=== PATIENT | male | born 1975 | race Caucasian/White ===

== ENCOUNTER → 2017-05-22 | Outpatient (CLI) | payer MEDICARE, MEDICAID ==
[~2017-05-22] MED LIST: ALDACTONE25 MG PO; BENZ100C8 PO; DIPH25TA82 PO; FERR-57 PO; FERR325T5 PO; FLC1T PO; FLUT16SP22 NS; FURO40TA4 PO; GABA-488 PO; GABA300C PO; GLIP5TAB13 PO; GLIP5TAB26 PO; GLUC100016 PO; HYDR-1231 PO; LEVO500T69 PO; LEVO500T78 PO; LEVO750T24 PO; MILK1CAP2 PO; MILK200C4 PO; MORP30TA5 PO; MULT-633 PO; Metronidazole PO; NADO20TA PO; NADO40TA PO; OMEP20CA6 PO; OXC5T PO; OXYC-12 PO; OXYC-309 PO; OXYC5TAB71 PO; OXYCODONE 10MG PO; PRD20T PO; SENN1TAB76 PO; SPIR100T28 PO; SPIR100T37 PO; TIZA4CAP6 PO; TIZA4TAB55 PO; VIT500TA PO; VITA100T4 PO
== END ==
LOC: WOUNDCARE 14:04
PROVIDERS: ATTEND Surgery
DX: T24.212A Burn of second degree of left thigh, initial encounter (principal); L97.121 Non-pressure chronic ulcer of left thigh limited to breakdown of skin; E11.42 Type 2 diabetes mellitus with diabetic polyneuropathy
CPT/HCPCS: 16020

== ENCOUNTER → 2017-05-31 | Outpatient (CLI) | payer MEDICARE, MEDICAID | LOC: WOUNDCARE 09:56 | PROVIDERS: ATTEND Surgery | DX: L97.122 Non-pressure chronic ulcer of left thigh with fat layer exposed (principal); E11.42 Type 2 diabetes mellitus with diabetic polyneuropathy; T24.312A Burn of third degree of left thigh, initial encounter | CPT/HCPCS: 16020 ==

== ENCOUNTER → 2017-06-05 | Outpatient (CLI) | payer MEDICARE, MEDICAID | LOC: WOUNDCARE 10:13 | PROVIDERS: ATTEND Surgery | DX: T24.312A Burn of third degree of left thigh, initial encounter (principal); L97.122 Non-pressure chronic ulcer of left thigh with fat layer exposed; E11.42 Type 2 diabetes mellitus with diabetic polyneuropathy | CPT/HCPCS: 16020 ==

== ENCOUNTER → 2017-06-12 | Outpatient (CLI) | payer MEDICARE, MEDICAID | LOC: WOUNDCARE 10:50 | PROVIDERS: ATTEND Surgery | DX: L97.122 Non-pressure chronic ulcer of left thigh with fat layer exposed (principal); T24.312A Burn of third degree of left thigh, initial encounter; E11.42 Type 2 diabetes mellitus with diabetic polyneuropathy | CPT/HCPCS: 16020 ==

== ENCOUNTER → 2017-06-21 | Outpatient (CLI) | payer MEDICARE, MEDICAID | LOC: WOUNDCARE 11:19 | PROVIDERS: ATTEND Surgery | DX: E11.42 Type 2 diabetes mellitus with diabetic polyneuropathy (principal); L97.122 Non-pressure chronic ulcer of left thigh with fat layer exposed; T24.312A Burn of third degree of left thigh, initial encounter | CPT/HCPCS: 99212 ==

== ENCOUNTER → 2017-06-27 | Outpatient (CLI) | payer MEDICARE, MEDICAID | LOC: LAB 14:57 | PROVIDERS: ATTEND Family Medicine | DX: L56.8 Other specified acute skin changes due to ultraviolet radiation (principal); G62.9 Polyneuropathy, unspecified | CPT/HCPCS: 36415; 84110; 84120 ==

== ENCOUNTER 2018-02-24 14:27 | Outpatient (RCR) | payer OTHER | END 2018-02-24 17:00 | disposition home or self-care (01) | PROVIDERS: ATTEND Neuromusculoskeletal Medicine, Sports Medicine | DX: Z02.71 Encounter for disability determination (principal) ==

== ENCOUNTER → 2018-02-24 | Outpatient (CLI) | payer OTHER ==
--- NOTE | 2018-02-24 15:41 | Diagnostic Imaging Report ---
PATIENT HISTORY: DDU. Left hip pain. TECHNIQUE: Two views of the left hip. COMPARISON: CT from 02/11/2014. FINDINGS: No acute fracture or dislocation is seen in the left hip. Alignment appears normal. The femoral head is well-seated in the acetabulum. No radiographic findings of osteonecrosis are seen. Joint spaces are generally preserved. IMPRESSION: No acute or significant osseous abnormalities seen in the left hip. Dictated by: Dictated on workstation # [id number]
--- NOTE | 2018-02-24 16:20 | Diagnostic Imaging Report ---
INDICATION: Neck pain. Time of exam 2:39 p.m. FINDINGS: AP and lateral views of the cervical spine were obtained. Curvature of the cervical spine is normal. There is minimal retrolisthesis of C5 on C6. Disc spaces are fairly well-maintained. No fracture is seen. The prevertebral tissues are within normal limits. Visualized odontoid appears intact. IMPRESSION: No acute bony abnormality is detected. Dictated by: Dictated on workstation # [id number]
== END ==
LOC: RAD 13:54
PROVIDERS: ATTEND Neuromusculoskeletal Medicine, Sports Medicine
DX: Z02.71 Encounter for disability determination (principal); M54.2 Cervicalgia; M87.852 Other osteonecrosis, left femur
CPT/HCPCS: 72040; 73502